=== PATIENT | male | born 1985 | race Caucasian/White ===

== ENCOUNTER 2020-07-29 13:10 | Inpatient (IN) ==
[2020-07-29] MEDS ORDERED: Thiamine 100 MG/ML 2 ml VIAL 100 MG, Folic Acid 1 MG, Multiple Vitamin IV ADULT 10 ML i... IV ONE (15:23)
[2020-07-29] MEDS ORDERED: Thiamine 100 MG/ML 2 ml VIAL (200 mg) IM ONE (15:24)
[2020-07-29 16:01] LABS: ABS Basophils 0.1 10^3/ul (0-0.2); ABS Eosinophils 0.2 10^3/ul (0-0.6); ABS Lymphocytes 2.5 10^3/ul (1.0-4.8); ABS Monocytes 0.8 10^3/ul (0-0.8); ABS Neutrophils 4.3 10^3/ul (1.5-7.7); Eosinophil % 2.5 %; Hematocrit 41 % (42-52); Hemoglobin 14.6 g/dL (14.0-18.0); Lymphocyte % 32.2 %; Mean Corpuscular HGB Conc 35 g/dL (31-36); Mean Corpuscular Hemoglobin 34 pg (27-31); Mean Corpuscular Volume 96 fL (80-94); Mean Platelet Volume 7.9 fL (7.4-10.4); Platelet Count 140 10^3/uL (150-450); Red Blood Count 4.32 10^6 /uL (4.18-5.48); Red Cell Distribution Width 13 % (10-15); White Blood Count 7.8 10^3/uL (3.5-10.8)
[2020-07-29 16:19] LABS: Albumin/Globulin Ratio 1.3 (1-3); BUN/Creatinine Ratio 3.3 (8-20); Calcium 8.6 mg/dL (8.6-10.3); EGFR Non-African American 148.7 (>60); Potassium 3.9 mmol/L (3.5-5.0); Total Bilirubin 0.7 mg/dL (0.2-1.0)
[2020-07-29] MEDS ORDERED: NS 0.9% 1000 ml BAG 1,000 ML IV ONE (16:29)
[2020-07-29 17:43] LABS: Urine Appearance Clear; Urine Bilirubin Negative (Negative); Urine Blood Negative (Negative); Urine Color Yellow; Urine Glucose Negative (Negative); Urine Ketones Negative (Negative); Urine Nitrite Negative (Negative); Urine Protein Negative (Negative); Urine Specific Gravity 1.002 (1.010-1.030); Urine Urobilinogen Negative (Negative)
[2020-07-29] MEDS ORDERED: Lorazepam PYXIS KEY PRN (18:21)
[2020-07-29 18:23] LABS: Urine Benzodiazepine Screen Presumptive Positive (None Detect); Urine Cannabinoids Screen Presumptive Positive (None Detect); Urine Opiates Screen None Detected (None Detect)
[2020-07-29] MEDS: LORazepam 2 mg VIAL 1 ml IV PUSH SCH (22:24)
[2020-07-29] MEDS: Nicotine PATCH 21 MG/24 HR PATCH TRANSDERM SCH (22:28)
[2020-07-30] MEDS: LORazepam 2 mg VIAL 1 ml IV PUSH SCH ×4 (01:40→23:44)
[2020-07-30 06:01] LABS: ABS Eosinophils 0.1 10^3/ul (0-0.6); ABS Lymphocytes 1.4 10^3/ul (1.0-4.8); ABS Monocytes 0.6 10^3/ul (0-0.8); ABS Neutrophils 3.2 10^3/ul (1.5-7.7); Eosinophil % 2.7 %; Hematocrit 41 % (42-52); Hemoglobin 14.4 g/dL (14.0-18.0); Lymphocyte % 26.7 %; Mean Corpuscular HGB Conc 35 g/dL (31-36); Mean Corpuscular Hemoglobin 34 pg (27-31); Mean Corpuscular Volume 97 fL (80-94); Mean Platelet Volume 8.3 fL (7.4-10.4); Platelet Count 119 10^3/uL (150-450); Red Blood Count 4.26 10^6 /uL (4.18-5.48); Red Cell Distribution Width 12 % (10-15); White Blood Count 5.4 10^3/uL (3.5-10.8)
[2020-07-30 06:21] LABS: Albumin 3.9 g/dL (3.2-5.2); Albumin/Globulin Ratio 1.5 (1-3); BUN/Creatinine Ratio 7.9 (8-20); Calcium 8.9 mg/dL (8.6-10.3); EGFR African American 139.6 (>60); EGFR Non-African American 115.4 (>60); Globulin 2.6 g/dL (2-4); Indirect Bilirubin 0.6 mg/dL (0.3-1.0); Potassium 4.3 mmol/L (3.5-5.0); Total Bilirubin 0.9 mg/dL (0.2-1.0); Total Protein 6.5 g/dL (6.4-8.9)
[2020-07-30] MEDS: Nicotine PATCH 21 MG/24 HR PATCH TRANSDERM SCH (08:15)
[2020-07-30] MEDS: Multivitamins/Minerals TAB PO SCH (08:16)
[2020-07-30] MEDS ORDERED: Multivitamins/Minerals TAB PO SCH (09:00)
[2020-07-30] MEDS ORDERED: Buprenorp/Nalox 8-2 MG FILM SL FILM SCH (09:00)
[2020-07-31 06:24] LABS: Albumin 3.9 g/dL (3.2-5.2); Albumin/Globulin Ratio 1.5 (1-3); BUN/Creatinine Ratio 8.6 (8-20); Calcium 8.9 mg/dL (8.6-10.3); EGFR African American 129.7 (>60); EGFR Non-African American 107.2 (>60); Globulin 2.6 g/dL (2-4); Potassium 3.6 mmol/L (3.5-5.0); Total Bilirubin 0.8 mg/dL (0.2-1.0); Total Protein 6.5 g/dL (6.4-8.9)
[2020-07-31] MEDS: Nicotine PATCH 21 MG/24 HR PATCH TRANSDERM SCH (08:26)
[2020-07-31] MEDS: Multivitamins/Minerals TAB PO SCH (08:27)
[2020-07-31] MEDS: LORazepam 2 mg VIAL 1 ml IV PUSH SCH (12:26)
[2020-08-01] MEDS: LORazepam 2 mg VIAL 1 ml IV PUSH SCH ×2 (00:04→11:18)
[2020-08-01] MEDS: Multivitamins/Minerals TAB PO SCH (08:00)
[2020-08-01] MEDS: Nicotine PATCH 21 MG/24 HR PATCH TRANSDERM SCH (08:00)
[2020-08-02] MEDS: Nicotine PATCH 21 MG/24 HR PATCH TRANSDERM SCH (08:05)
[2020-08-02] MEDS: Multivitamins/Minerals TAB PO SCH (08:06)
[2020-08-02 11:40] VITALS: BP 150/88
== END 2020-08-02 13:26 | disposition home or self-care (01) | DRG 775 ==
LOC: ED 13:10 → MEDTELE 19:34
PROVIDERS: ADMIT Internal Medicine; ATTEND Internal Medicine